=== PATIENT | female | born 1980 | race Hispanic/Latino ===

== ENCOUNTER → 2025-05-07 | Day surgery (SDC) | payer OTHER, MEDICARE ==
[~2025-05-07] MED LIST: FENTANYL CITRATE/PF 100MCG/2 ML INJ ONE; GLUCAGON FOR INJ 1 MG VIAL ONE; HYDROXYZIN10 MG/5 ML PO; HYOSCYAMINE SULFATE 0.5 MG/ML INJ ONE; LAMICTAL100 MG PO; LIDOCAINE HCL 2% LOCAL INJ 5 ML SDV VIAL INJ ONE; PROPOFOL IV EMULSION 10 MG/ML 20 ML VIAL ONE; VRAYLAR3 MG PO
[2025-05-07] MEDS: LACTATED RINGER'S 1,000 ML ONE (07:03)
[2025-05-07 08:18] VITALS: TEMP 98.5
[2025-05-07 08:40] VITALS: BP 128/81; PULSE 83; RESP 18; O2SAT 99
[2025-05-07 10:46] LABS: CDIFF AG QUIK CHEK NEGATIVE (NEGATIVE); CDIFF TOX QUIK CHEK NEGATIVE (NEGATIVE)
== END | disposition home or self-care (01) ==
LOC: OR 05:58
PROVIDERS: ATTEND Internal Medicine Gastroenterology
DX: Z12.11 Encounter for screening for malignant neoplasm of colon (principal); D12.4 Benign neoplasm of descending colon; K64.8 Other hemorrhoids; K62.89 Other specified diseases of anus and rectum; K29.50 Unspecified chronic gastritis without bleeding; B96.81 Helicobacter pylori [H. pylori] as the cause of diseases classified elsewhere; K20.90 Esophagitis, unspecified without bleeding; F31.9 Bipolar disorder, unspecified; Z90.49 Acquired absence of other specified parts of digestive tract; Z79.899 Other long term (current) drug therapy; Z88.0 Allergy status to penicillin; Z88.1 Allergy status to other antibiotic agents
CPT/HCPCS: 43239; 45380; 45385; 81025; 83630; 83993; 86140; 87045; 87177; 87324; 87328; 87449; J1610; J1980; J2003; J2470; J2704; J3010; J7121; 45378

== ENCOUNTER → 2025-06-03 | Outpatient (REF) | payer OTHER, MEDICARE ==
[~2025-06-03] MED LIST changes: -FENTANYL CITRATE/PF 100MCG/2 ML INJ ONE; -GLUCAGON FOR INJ 1 MG VIAL ONE; -HYOSCYAMINE SULFATE 0.5 MG/ML INJ ONE; -LIDOCAINE HCL 2% LOCAL INJ 5 ML SDV VIAL INJ ONE; -PROPOFOL IV EMULSION 10 MG/ML 20 ML VIAL ONE
== END ==
LOC: US 09:03
PROVIDERS: ATTEND Nurse Practitioner
DX: K76.0 Fatty (change of) liver, not elsewhere classified (principal); A04.8 Other specified bacterial intestinal infections
CPT/HCPCS: 76700